=== PATIENT | female | born 1980 | race Caucasian/White ===

== ENCOUNTER 2019-01-01 14:02 | Emergency (ER) | payer OTHER ==
[2019-01-01] MEDS ORDERED: Ondansetron PF 4 MG/2 ML Vial ONE (14:50)
[2019-01-01] MEDS ORDERED: Ketorolac Tromethamine 30 MG/ML VIAL ONE (14:50)
--- NOTE | 2019-01-01 15:14 | RAD ---
LUMBAR SPINE 3 VIEWS: Date: 01/01/19 HISTORY: Low back pain. FINDINGS/IMPRESSION: No fracture, subluxation, or bony destruction identified. POS: OFF
[2019-01-01 15:19] LABS: Bilirubin Negative (Negative); Blood, Urine Negative (Negative); Glucose, Urine (Dipstick) Negative (Negative); Leukocyte Small (Negative); Nitrite Negative (Negative); Protein, Urine (Dipstick) Negative (Neg-Trace); Urobilinogen 0.2 mg/dL (Less than 2)
[2019-01-01 15:20] LABS: Clarity Slightly Cloudy (Clear); RBC/HPF 0-3 HPF (0-3)
[2019-01-01 15:21] LABS: Bacteria/HPF 1+ HPF (None Seen)
[2019-01-01] MEDS ORDERED: HYDROcodone/Acetaminophen 10/325 mg Tablet ONE (15:46)
[2019-01-01 16:03] LABS: #Basophils 0.1 thou/uL (0.0-0.2); #Eosinphils 0.2 thou/uL (0.0-0.7); #Lymphocytes 2.1 thou/uL (1.20-3.40); #Monocytes 0.4 thou/uL (0.11-0.59); #Neutrophils 3.9 thou/uL (1.40-6.50); %Basophils 1.5 % (0.0-1.0); %Eosinophils 2.6 % (0.0-10.0); %Lymphocytes 31.6 % (21.0-51.0); %Monocytes 6.3 % (0.0-10.0); Hemoglobin 11.4 g/dL (12.0-16.0); Mean Corpuscular Hemoglobin 29.3 pg (27.0-31.0); Mean Corpuscular Volume 86.3 fL (78.0-98.0); Mean Platelet Volume 7.7 fL (7.4-10.4); Platelet Count 217 thou/uL (130-400); RBC Distribution Width 10.9 % (11.5-14.5); White Blood Cell (WBC) Count 6.7 thou/uL (4.8-10.8)
[2019-01-01 16:21] LABS: ALT (SGPT) 8 U/L (8-55); AST (SGOT) 13 U/L (5-34); Alkaline Phosphatase 72 U/L (40-110); Anion Gap 12 mmol/L (10-20); BUN (Urea Nitrogen) 5 mg/dL (7.0-18.7); Bilirubin, Total 0.3 mg/dL (0.2-1.2); Calc. Creatinine Clearance 0 mL/min (70-130); Calcium 9.1 mg/dL (7.8-10.44); Carbon Dioxide 27 mmol/L (22-29); Chloride 106 mmol/L (98-107); Estimated GFR-MDRD 81; Globulin 2.5 g/dL (2.4-3.5); Glucose 104 mg/dL (70-105); Potassium 3.7 mmol/L (3.5-5.1); Protein, Total 6.5 g/dL (6.0-8.3); Sodium 141 mmol/L (136-145)
== END 2019-01-01 16:40 | disposition home or self-care (01) ==
LOC: MADERS 14:02
DX: M54.41 Lumbago with sciatica, right side (principal)
CPT/HCPCS: 36415; 72100; 80053; 81003; 81015; 85025; 86140; 96372; J1885; J2405

== ENCOUNTER 2019-03-08 15:13 | Emergency (ER) | payer OTHER ==
[2019-03-08] MEDS ORDERED: Cephalexin 500 MG CAP ONE (15:50)
[2019-03-08] MEDS ORDERED: HYDROcodone/Acetaminophen 5/325 mg Tablet ONE (15:50)
== END 2019-03-08 16:25 | disposition home or self-care (01) ==
LOC: MADERS 15:13
DX: G89.18 Other acute postprocedural pain (principal); M79.641 Pain in right hand; M79.642 Pain in left hand
CPT/HCPCS: 99283

== ENCOUNTER 2019-04-06 08:23 | Emergency (ER) | payer OTHER, SELFPAY ==
[2019-04-06] MEDS ORDERED: Fluorescein Opthalmic Strip ONE (08:54)
[2019-04-06] MEDS ORDERED: Tetracaine 0.5% OPHTH SOLN/PF 4 ML BOT ONE (08:54)
== END 2019-04-06 09:27 | disposition home or self-care (01) ==
LOC: MADERS 08:23
DX: H57.89 Other specified disorders of eye and adnexa (principal)
CPT/HCPCS: 99283

== ENCOUNTER 2019-04-21 17:30 | Emergency (ER) | payer OTHER, SELFPAY ==
[2019-04-21] MEDS ORDERED: HYDROcodone/Acetaminophen 10/325 mg Tablet ONE (17:58)
--- NOTE | 2019-04-21 18:09 | RAD ---
THREE VIEWS OF THE LEFT SMALL FINGER: 04/21/19 COMPARISON: None. HISTORY: Left small finger pain after trauma. FINDINGS: Three views of the left small finger shows no evidence of acute fracture or dislocation. No soft tiss ue swelling is seen. IMPRESSION: No evidence of acute osseous abnormality. POS: C
== END 2019-04-21 18:49 | disposition home or self-care (01) ==
LOC: MADERS 17:30
DX: S66.307A Unspecified injury of extensor muscle, fascia and tendon of left little finger at wrist and hand level, initial encounter (principal); W54.8XXA Other contact with dog, initial encounter

== ENCOUNTER 2020-12-30 16:35 | Emergency (ER) | payer OTHER | END 2020-12-30 17:45 | disposition home or self-care (01) | LOC: MADERS 16:35 | DX: J02.9 Acute pharyngitis, unspecified (principal); H69.82 Other specified disorders of Eustachian tube, left ear | CPT/HCPCS: 99283 ==

== ENCOUNTER 2021-02-04 13:17 | Emergency (ER) | payer SELFPAY ==
[2021-02-04] MEDS ORDERED: Acetaminophen 325 MG TAB ONE (14:14)
== END 2021-02-04 14:16 | disposition home or self-care (01) ==
LOC: MADERS 13:17
DX: H66.91 Otitis media, unspecified, right ear (principal)
CPT/HCPCS: 99283

== ENCOUNTER 2021-02-09 14:47 | Emergency (ER) | payer OTHER, SELFPAY | END 2021-02-09 15:45 | disposition home or self-care (01) | LOC: MADERS 14:47 | DX: H65.91 Unspecified nonsuppurative otitis media, right ear (principal) | CPT/HCPCS: 96372; 99283; J1040 ==

== ENCOUNTER 2021-03-18 14:35 | Emergency (ER) | payer SELFPAY | END 2021-03-18 15:13 | disposition home or self-care (01) | LOC: MADERS 14:35 | DX: J32.9 Chronic sinusitis, unspecified (principal) | CPT/HCPCS: 99283 ==

== ENCOUNTER 2021-12-22 14:01 | Emergency (ER) | payer SELFPAY ==
[~2021-12-22 14:01] MED LIST: Iopamidol 370 76% 100 ML VIAL ONE
[2021-12-22] MEDS ORDERED: Fentanyl 100 MCG/2 ML VIAL ONE (15:06)
[2021-12-22] MEDS ORDERED: Sodium Chloride 0.9% 1,000 ML ONE (15:06)
[2021-12-22] MEDS ORDERED: Ondansetron PF 4 MG/2 ML Vial ONE (15:06)
[2021-12-22 15:25] LABS: Bilirubin Negative (Negative); Blood, Urine Negative (Negative); Glucose, Urine (Dipstick) Negative (Negative); Ketone, Urine Negative (Negative); Leukocyte Trace (Negative); Nitrite Negative (Negative); Protein, Urine (Dipstick) Negative (Neg-Trace); Urobilinogen 0.2 mg/dL (Less than 2)
[2021-12-22 15:28] LABS: #Basophils 0.1 thou/uL (0.0-0.2); #Eosinphils 0.1 thou/uL (0.0-0.7); #Lymphocytes 1.9 thou/uL (1.20-3.40); #Monocytes 0.4 thou/uL (0.11-0.59); #Neutrophils 4.1 thou/uL (1.40-6.50); %Basophils 1.6 % (0.0-1.0); %Lymphocytes 28.6 % (21.0-51.0); %Monocytes 5.9 % (0.0-10.0); %Neutrophils 61.9 % (42.0-75.0); Hemoglobin 10.5 g/dL (12.0-16.0); Mean Corpuscular HGB CONC 31.8 g/dL (32.0-36.0); Mean Corpuscular Hemoglobin 25.8 pg (27.0-31.0); Mean Corpuscular Volume 81.3 fL (78.0-98.0); Mean Platelet Volume 10.7 fL (7.4-10.4); Platelet Count 228 thou/uL (130-400); RBC Distribution Width 13.3 % (11.5-14.5); Red Blood Cell (RBC) Count 4.06 mill/uL (4.20-5.40); White Blood Cell (WBC) Count 6.6 thou/uL (4.8-10.8)
[2021-12-22 15:30] LABS: Clarity Clear (Clear); Specific Gravity, Urine 1.006 (1.002-1.036)
[2021-12-22 15:40] LABS: Bacteria/HPF Rare-Few HPF (None Seen); RBC/HPF None Seen HPF (0-3); Squamous Epithelial 0-3 HPF (0-3)
[2021-12-22 15:43] LABS: ALT (SGPT) 16 U/L (8-55); AST (SGOT) 17 U/L (5-34); Albumin 4.5 g/dL (3.5-5.0); Alkaline Phosphatase 70 U/L (40-110); Anion Gap 12 mmol/L (10-20); BUN (Urea Nitrogen) 8 mg/dL (7.0-18.7); Bilirubin, Total 0.3 mg/dL (0.2-1.2); Calc. Creatinine Clearance 0 mL/min (70-130); Calcium 9.5 mg/dL (7.8-10.44); Carbon Dioxide 23 mmol/L (22-29); Chloride 108 mmol/L (98-107); Estimated GFR 96; Globulin 2.9 g/dL (2.4-3.5); Glucose 89 mg/dL (70-105); Lipase 33 U/L (8-78); Potassium 3.8 mmol/L (3.5-5.1); Protein, Total 7.4 g/dL (6.0-8.3); Sodium 139 mmol/L (136-145)
== END 2021-12-22 16:30 | disposition home or self-care (01) ==
LOC: MADERS 14:01
DX: R10.10 Upper abdominal pain, unspecified (principal)
CPT/HCPCS: 74177; 80053; 81003; 81015; 83690; 85025; 87077; 87086; 87186; 96374; 96375; J2405; J3010; J7050; Q9967

== ENCOUNTER 2022-02-21 19:46 | Emergency (ER) | payer OTHER ==
[2022-02-21 20:47] LABS: #Basophils 0.2 thou/uL (0.0-0.2); #Eosinphils 0.1 thou/uL (0.0-0.7); #Lymphocytes 2.5 thou/uL (1.20-3.40); #Monocytes 0.5 thou/uL (0.11-0.59); #Neutrophils 4.8 thou/uL (1.40-6.50); %Basophils 1.9 % (0.0-1.0); %Eosinophils 1.4 % (0.0-10.0); %Lymphocytes 31.1 % (21.0-51.0); %Monocytes 6.5 % (0.0-10.0); %Neutrophils 59.2 % (42.0-75.0); Hemoglobin 11.2 g/dL (12.0-16.0); Mean Corpuscular HGB CONC 32.2 g/dL (32.0-36.0); Mean Corpuscular Hemoglobin 27.1 pg (27.0-31.0); Platelet Count 278 10x3/uL (130-400); RBC Distribution Width 12.4 % (11.5-14.5); Red Blood Cell (RBC) Count 4.15 mill/uL (4.20-5.40); White Blood Cell (WBC) Count 8.1 10x3/uL (4.8-10.8)
[2022-02-21 20:56] LABS: Prothrombin Time 13.1 sec (12.0-14.7)
[2022-02-21 20:57] LABS: PTT 27.5 sec (22.9-36.1)
[2022-02-21 20:59] LABS: D-Dimer Test 0.31 *mcg/mL (0.27-0.43)
[2022-02-21 21:07] LABS: CKMB 0.8 ng/mL (0-6.6); Troponin I Less than 0.010 ng/mL (< 0.028)
[2022-02-21 21:09] LABS: ALT (SGPT) 13 U/L (8-55); AST (SGOT) 18 U/L (5-34); Alkaline Phosphatase 80 U/L (40-110); Anion Gap 14 mmol/L (10-20); BUN (Urea Nitrogen) 7 mg/dL (7.0-18.7); Bilirubin, Total 0.2 mg/dL (0.2-1.2); CK (CPK) 59 U/L (29-168); Calc. Creatinine Clearance 0 mL/min (70-130); Calcium 10.1 mg/dL (7.8-10.44); Carbon Dioxide 24 mmol/L (22-29); Chloride 108 mmol/L (98-107); Estimated GFR 93; Globulin 3.4 g/dL (2.4-3.5); Glucose 82 mg/dL (70-105); Lipase 50 U/L (8-78); Magnesium 1.9 mg/dL (1.6-2.6); Potassium 3.5 mmol/L (3.5-5.1); Protein, Total 8.4 g/dL (6.0-8.3); Sodium 142 mmol/L (136-145)
[2022-02-21] MEDS ORDERED: Dexamethasone 10 MG/ML VIAL ONE (22:58)
[2022-02-21] MEDS ORDERED: Ketorolac Tromethamine 30 MG/ML VIAL ONE (22:58)
== END 2022-02-21 23:17 | disposition home or self-care (01) ==
LOC: MADERS 19:46
DX: R07.89 Other chest pain (principal)
CPT/HCPCS: 71045; 80053; 82550; 83690; 83735; 83880; 84484; 85025; 85379; 85610; 85730; 93005; 96374; 96375; J1100; J1885